=== PATIENT | male | born 1950 | race Caucasian/White ===

== ENCOUNTER 2018-01-07 12:11 | Emergency (ER) | payer MEDICARE ==
[~2018-01-07] VITALS: Ht 185.4 cm; Wt 93.0 kg
[~2018-01-07 12:11] MED LIST: ATORVASTATIN CA80 MG PO; BISMATROL262 MG/15 PO; COLY-MYCIN S OT10 ML OTIC; COUMADIN4 MG PO; DETROL LA4 MG PO; DILANTIN100 MG PO; DULCOLAX10 MG PR; EXTRA STRENGTH500 MG PO; FLEET ENEMA133 ML PR; FLOMAX0.4 MG PO; FLONASE ALLERG9.9 ML NAS; FOLIC ACID1 MG PO; GOLD BOND MEDI113 G1 TOP; MILK OF MA400 MG/5 M PO; MULTI VITAMIN1 EACH PO; MYSOLINE250 MG PO; NEURONTIN100 MG PO; OXYCODONE HCL5 MG PO; PATANOL5 ML OU; PLAQUENIL200 MG PO; PROPRANOLOL HCL60 M1 PO; SENNA8.6 MG PO; SINGULAIR10 MG PO; SYSTANE GEL EYE10 ML OU; VENTOLIN HFA18 GM INH; VITAMIN D22000 UNIT PO; XANAX1 MG PO; ZOLOFT100 MG PO; ZYRTEC10 M3 PO
--- NOTE | 2018-01-09 07:33 | NUR ---
[facility] received referral from ED Physician. Patient currently has a PCP Dr Menchaca. Referral discussed and referred to [facility].
== END 2018-01-07 15:00 | disposition home or self-care (01) ==
LOC: ED 12:11
DX: S00.03XA Contusion of scalp, initial encounter (principal); E78.5 Hyperlipidemia, unspecified; J45.909 Unspecified asthma, uncomplicated; Z79.899 Other long term (current) drug therapy; Z79.01 Long term (current) use of anticoagulants; Y04.2XXA Assault by strike against or bumped into by another person, initial encounter
CPT/HCPCS: 36415; 70450; 85610; 99284